=== PATIENT | male | born 1950 | race Caucasian/White ===

== ENCOUNTER 2016-12-04 09:25 | Emergency (ER) | payer BC ==
[~2016-12-04] VITALS: Ht 180.3 cm; Wt 106.4 kg
[2016-12-04 09:28] VITALS: TEMP 98.5
[2016-12-04] MEDS ORDERED: PRINIVIL20 MG PO (10:16)
[2016-12-04] MEDS ORDERED: GLUCOPHAGE XR750 MG PO (10:17)
[2016-12-04] MEDS ORDERED: GLUCOTROL10 MG PO (10:18)
[2016-12-04] MEDS ORDERED: TRILIPIX 135MG PO (10:18)
[2016-12-04] MEDS ORDERED: PRILOSEC 20MG20 MG PO (10:22)
[2016-12-04] MEDS ORDERED: GLUCOTROL 5M5 MG/TAB PO (10:23)
[2016-12-04] MEDS ORDERED: TRICOR145 MG PO (10:24)
[2016-12-04] MEDS ORDERED: PERCOCET 325 MG1 TA2 PO (10:34)
[2016-12-04 12:00] VITALS: BP 138/76; PULSE 60
== END 2016-12-04 12:00 | disposition home or self-care (01) ==
LOC: COL.ER 09:25
DX: S82.831A Other fracture of upper and lower end of right fibula, initial encounter for closed fracture (principal); S93.04XA Dislocation of right ankle joint, initial encounter; E11.9 Type 2 diabetes mellitus without complications; I10 Essential (primary) hypertension; Z23 Encounter for immunization; Z87.891 Personal history of nicotine dependence; Z79.84 Long term (current) use of oral hypoglycemic drugs; W10.9XXA Fall (on) (from) unspecified stairs and steps, initial encounter; Y92.009 Unspecified place in unspecified non-institutional (private) residence as the place of occurrence of the external cause
CPT/HCPCS: J3010

== ENCOUNTER 2023-04-20 12:31 | Day surgery (SDC) | payer BC ==
[~2023-04-20] VITALS: Ht 177.8 cm; Wt 102.4 kg
[~2023-04-20 12:31] MED LIST: ASPIRIN 32325 MG/TAB PO; CEPHALEXIN PO; CRESTOR20 MG PO; DOXYCYCLINE; GLUCOPHAGE XR750 MG PO; GLUCOTROL 5M5 MG/TAB PO; GLUCOTROL10 MG PO; LOVENOX 4040 MG/0.4 SQ; NIACIN 64 MG-501 TA1 PO; PERCOCET 325 MG1 TA2 PO; PRILOSEC 20MG20 MG PO; PRINIVIL20 MG PO; TRICOR145 MG PO; TRILIPIX 135MG PO; TRULICITY; TRULICITY1.5 MG/0.5 SQ
[2023-04-20] MEDS ORDERED: Midazolam 2 MG/2 ML VIAL IV ONE (13:17)
[2023-04-20] MEDS ORDERED: dexAMETHasone 10 MG/ML VIAL IV ONE (13:17)
[2023-04-20] MEDS ORDERED: Lidocaine PF 2% (20 MG/ML) 5 ML VIAL IV ONE (13:17)
[2023-04-20] MEDS ORDERED: Glycopyrrolate 0.2 MG/ML 1 ML VIAL IV ONE (13:17)
[2023-04-20] MEDS ORDERED: fentaNYL 50 MCG/ML 2 ML VIAL IV ONE (13:17)
[2023-04-20] MEDS ORDERED: NS 10 ML VIAL IV ONE (13:17)
[2023-04-20] MEDS ORDERED: NORVASC 10MG10 MG PO (13:29)
[2023-04-20] MEDS ORDERED: GLUCOPHAGE XR750 MG PO (13:29)
[2023-04-20] MEDS ORDERED: LR 1,000 ML IV SCH (13:45)
[2023-04-20] MEDS ORDERED: Lidocaine 2% (20 MG/ML) 20 ML UROJET UR ONE (14:12)
[2023-04-20] MEDS ORDERED: Ondansetron 4 MG/2 ML VIAL IV PRN ×2 (14:15)
[2023-04-20] MEDS ORDERED: HYDROmorphone 2 MG/1 ML VIAL IV PRN ×2 (14:15)
[2023-04-20] MEDS ORDERED: hydrALAZINE 20 MG/ML 1 ML VIAL IV PRN (14:15)
[2023-04-20] MEDS ORDERED: fentaNYL 50 MCG/ML 2 ML VIAL IV PRN ×2 (14:15)
[2023-04-20 15:00] VITALS: BP 132/78; PULSE 72; TEMP 97.4
[2023-04-20 15:15] VITALS: BP 127/67; PULSE 70
[2023-04-20 15:30] VITALS: BP 139/80; PULSE 64
--- NOTE | 2023-04-20 15:30 | NUR ---
1301 Pt ambulatory to bay 5 with a steady gait, breathing even and unlabored. Pt is alert and oriented, accompanied by his . Consents reviewed and signed by pt. IV established. LR infusing via gravity at KVO. Call light in reach. Warm blanket provided.
[2023-04-20 15:40] VITALS: BP 140/76; PULSE 64
--- NOTE | 2023-04-20 15:50 | NUR ---
1500 RETURNS TO ROOM 5 PER CART. AWAKE, ALERT. HOB ELEVATED 60 DEGREES. RESP UNLABORED. CONVERSES WITH STAFF. ABD SOFT. DENIES PAIN OR URINARY URGENCY. VITAL SIGNS OBTAINED. CALL LIGHT AT SIDE. IN ROOM 1515 TOLERATES PO WATER AND JUICE WITHOUT NAUSEA 1530 DISCHARGE INSTRUCTIONS REVIEWED. PATIENT AND VERBALIZE UNDERSTANDING. COPY PROVIDED IN DISCHARGE FOLDER 9162 SITS ON EDGE OF CART. DRESSES SELF, THEN AMBULATES TO BATHROOM WITH STANDBY ASSIST. ADMITS TO VOIDING WITHOUT DIFFICULTY
[2023-04-20 16:21] VITALS: BP 125/78; PULSE 65; TEMP 98
== END 2023-04-20 15:50 | disposition home or self-care (01) ==
LOC: SDCO 12:31
DX: C67.8 Malignant neoplasm of overlapping sites of bladder (principal); Z87.891 Personal history of nicotine dependence
CPT/HCPCS: J0690; J1100; J2250; J2704; J3010; J7120